=== PATIENT | male | born 1960 | race Hispanic/Latino ===

== ENCOUNTER 2019-12-07 08:21 | Emergency (ER) | payer SELFPAY ==
--- NOTE | 2019-12-07 09:08 | RAD REPORT ---
EXAM DESCRIPTION: CT - Head Brain Wo Cont - 12/07/2019 8:54 am CLINICAL HISTORY: DIZZINESS Headache, drowsiness, dizziness COMPARISON: No comparisons TECHNIQUE: All CT scans are performed using dose optimization technique as appropriate and may inclu de automated exposure control or mA/KV adjustment according to patient size. FINDINGS: No intracranial hemorrhage, hydrocephalus or extra-axial fluid collection.No areas of brai n edema or evidence of midline shift. Mild mucoperiosteal thickening of the right maxillary antrum is seen. The paranasal sinuses and masto ids are otherwise clear. The calvarium is intact. IMPRESSION: No acute intracranial abnormality.
[2019-12-07] MEDS ORDERED: KETOROLAC 30 MG/ML INJ ONE (09:26)
[2019-12-07] MEDS ORDERED: METOCLOPRAMIDE 10 MG/2mL INJ ONE (09:26)
[2019-12-07] MEDS ORDERED: NA CHLORIDE 0.9% 50 ML IV ONE (09:26)
[2019-12-07] MEDS ORDERED: NA CHLORIDE 0.9% 1,000 ML ONE (09:26)
[2019-12-07] MEDS ORDERED: DIPHENHYDRAMINE 50 MG/ML VIAL ONE (09:26)
[2019-12-07] MEDS ORDERED: MECLIZINE HCL 12.5 MG TAB ONE (09:26)
[2019-12-07 09:51] LABS: Absolute Lymphocytes (CBC) 1.3 K/uL (0.7-4.9); Basophils % 0.9 % (0-1.3); Hematocrit 48.9 % (39.6-49.0); Lymphocytes % 20.6 % (15.3-44.8); MPV 8.5 fL (7.6-11.3); RBC Red Blood Cell Count 5.67 M/uL (4.33-5.43)
[2019-12-07 09:53] LABS: Protime INR 0.96
[2019-12-07 10:05] LABS: Albumin 3.5 g/dL (3.4-5.0); Bilirubin Total 0.3 mg/dL (0.2-1.0); Protein, Total 7.2 g/dL (6.4-8.2)
[2019-12-07 10:06] LABS: Potassium 4.3 mmol/L (3.5-5.1)
--- NOTE | 2019-12-07 10:36 | EDPHYS ---
Physician Documentation [facility] Name: Armaan Ibrahim Age: 59 yrs Sex: Male : 1960 Arrival Date: 12/07/2019 Time: 08:22 Bed 5 Private MD: ED Physician Lino Muñoz HPI: 12/06 10:33 This 59 yrs old Male presents to ER via EMS with complaints of Headache > ma2 24hrs Old. 10:33 The patient complains of pain to the right [employer]. Onset: The symptoms/episode ma2 began/occurred gradually, 1 day(s) ago. Associated signs and symptoms: Pertinent negatives: dizziness, malaise, neck stiffness, Photophobia. Severity of symptoms: At its worst the pain was mild, in the emergency department the pain is unchanged. Headache History: Denies prior headaches. The patient has not experienced similar symptoms in the past. Historical: - Allergies: 08: No Known Allergies; ph - Home Meds: : None [Active]; ph - PMHx: : None; ph - Immunization history:: Adult Immunizations unknown. - Social history:: Patient/guardian denies using The patient lives with family, Smoking status: Patient/guardian denies using alcohol, street drugs, tobacco products. - Family history:: not pertinent. ROS: 10:33 Constitutional: Negative for fever, chills, and weight loss. ma2 10:33 All other systems are negative. Exam: 10:33 Constitutional: This is a well developed, well nourished patient who is awake, alert, ma2 and in no acute distress. Head/Face: Normocephalic, atraumatic. Eyes: Pupils equal round and reactive to light, extra-ocular motions intact. Lids and lashes normal. Conjunctiva and sclera are non-icteric and not injected. Cornea within normal limits. Periorbital areas with no swelling, redness, or edema. ENT: Nares patent. No nasal discharge, no septal abnormalities noted. Tympanic membranes are normal and external auditory canals are clear. Oropharynx with no redness, swelling, or masses, exudates, or evidence of obstruction, uvula midline. Mucous membranes moist. Neck: Trachea midline, no thyromegaly or masses palpated, and no cervical lymphadenopathy. Supple, full range of motion without nuchal rigidity, or vertebral point tenderness. No Meningismus. Chest/axilla: Normal chest wall appearance and motion. Nontender with no deformity. No lesions are appreciated. Cardiovascular: Regular rate and rhythm with a normal S1 and S2. No gallops, murmurs, or rubs. Normal PMI, no JVD. No pulse deficits. Respiratory: Lungs have equal breath sounds bilaterally, clear to auscultation and percussion. No rales, rhonchi or wheezes noted. No increased work of breathing, no retractions or nasal flaring. Abdomen/GI: Soft, non-tender, with normal bowel sounds. No distension or tympany. No guarding or rebound. No evidence of tenderness throughout. MS/ Extremity: Pulses equal, no cyanosis. Neurovascular intact. Full, normal range of motion. Neuro: Awake and alert, GCS 15, oriented to person, place, time, and situation. Cranial nerves II-XII grossly intact. Motor strength 5/5 in all extremities. Sensory grossly intact. Cerebellar exam normal. Normal gait. Vital Signs: 08:25 BP 193 / 95; Pulse 65; Resp 18; Temp 97.0; Pulse Ox 99% on R/A; ph 09:52 BP 165 / 92; Pulse 72; Resp 18; Pulse Ox 100% on R/A; ph 10:31 BP 142 / 96; Pulse 62; Resp 18; Pulse Ox 100% on R/A; ph [place] Coma Score: 10:33 Eye Response: spontaneous(4). Verbal Response: oriented(5). Motor Response: obeys ma2 commands(6). Total: 15. MDM: 08:23 Patient medically screened. ma2 10:33 Differential diagnosis: migraine, otitis, uremia, vasomotor headache. Data reviewed: ma2 vital signs, nurses notes. Data reviewed: [facility] records, old medical records, lab test result(s), radiologic studies. Counseling: I had a detailed discussion with the patient and/or guardian regarding: the historical points, exam findings, and any diagnostic results supporting the discharge/admit diagnosis, the presence of at least one elevated blood pressure reading (>120/80) during this emergency department visit, the need for outpatient follow up. Response to treatment: the patient's symptoms have markedly improved after treatment, the patient's symptoms have resolved after treatment. 12/06 08:27 Order name: CBC with Diff; Complete Time: 10:36 ma2 12/06 08:27 Order name: CMP; Complete Time: 10:08 ma2 12/06 08:27 Order name: CT Head Brain wo Cont; Complete Time: 10:08 ma2 12/06 08:27 Order name: PT-INR; Complete Time: 10:08 ma2 12/06 08:27 Order name: Ptt, Activated; Complete Time: 10:08 ma2 12/06 11:01 Order name: Urine Dipstick--Ancillary (enter results) bd 12/06 08:27 Order name: Urine Dipstick-Ancillary (obtain specimen); Complete Time: 11:00 ma2 12/06 09:26 Order name: Labs - recollect needed; Complete Time: 09:52 bd Administered Medications: 09:25 Drug: TORadol 30 mg Route: IVP; Site: right antecubital; ph 10:30 Follow up: Response: No adverse reaction ph 09:25 Drug: Benadryl 50 mg Route: IVP; Site: right antecubital; ph 10:29 Follow up: Response: No adverse reaction ph 09:25 Drug: Meclizine 25 mg Route: PO; ph 10:29 Follow up: Response: No adverse reaction ph 09:26 Drug: NS 0.9% 1000 ml Route: IV; Rate: 1 bolus; Site: right antecubital; ph 10:30 Follow up: Response: No adverse reaction; IV Status: Completed infusion ph 09:26 Drug: Reglan 20 mg Route: IVP; Site: right antecubital; ph 10:30 Follow up: Response: No adverse reaction ph Disposition: 12/07/19 10:35 Discharged to Home. Impression: Dizziness and giddiness. - Condition is Stable. - Discharge Instructions: Dizziness, Xisf-ox-Iadu. - Prescriptions for Meclizine 25 mg Oral Tablet - take 1 tablet by ORAL route every 8 hours As needed; 30 tablet. Diclofenac Sodium 75 mg Oral Tablet Sustained Release - take 1 tablet by ORAL route 2 times per day; 30 tablet. - Work release form, Medication Reconciliation Form, Thank You Letter, Antibiotic Education, Prescription Opioid Use form. - Follow up: Private Physician; When: Tomorrow; Reason: Continuance of care. Signatures: Dispatcher [employer] EDMS Corrina Chavarria Patricia, RN RN ph Lino Muñoz MD MD ma2 Corrections: (The following items were deleted from the chart) 08:53 08:31 Social history: Smoking status: ph ph 11:10 10:35 12/07/2019 10:35 Discharged to Home. Impression: Dizziness and giddiness. ph Condition is Stable. Prescriptions for Meclizine 25 mg Oral Tablet - take 1 tablet by ORAL route every 8 hours As needed; 30 tablet, Diclofenac Sodium 75 mg Oral Tablet Sustained Release - take 1 tablet by ORAL route 2 times per day; 30 tablet. and Forms are Medication Reconciliation Form, Thank You Letter, Antibiotic Education, Prescription Opioid Use. Follow up: Private Physician; When: Tomorrow; Reason: Continuance of care. ma2
--- NOTE | 2019-12-07 10:36 | ER ---
Nurse's Notes [facility] Name: Armaan Ibrahim Age: 59 yrs Sex: Male : 1960 Arrival Date: 12/07/2019 Time: 08:22 Bed 5 Private MD: Diagnosis: Dizziness and giddiness Presentation: 12/06 08:25 Chief complaint: EMS states: R sided headache since yesterday, describes as "buzzing", ph pt hypertensive at 190/100, HR 72, pt also reports dizziness and blurred vision. Denies any significant medical hx, denies recent illness. Coronavirus screen: Client denies travel out of the [place] in the last 14 days. At this time, the client does not indicate any symptoms associated with coronavirus-19. Ebola Screen: No symptoms or risks identified at this time. Initial Sepsis Screen: Does the patient meet any 2 criteria? No. Patient's initial sepsis screen is negative. Does the patient have a suspected source of infection? No. Patient's initial sepsis screen is negative. Risk Assessment: Do you want to hurt yourself or someone else? Patient reports no desire to harm self or others. Onset of symptoms was December 07, 2019. 08:25 Method Of Arrival: EMS: [facility] 08:25 Acuity: ANTOINE 2 ph Historical: - Allergies: 08:28 No Known Allergies; ph - Home Meds: 08:28 None [Active]; ph - PMHx: 08:28 None; ph - Immunization history:: Adult Immunizations unknown. - Social history:: Patient/guardian denies using The patient lives with family, Smoking status: Patient/guardian denies using alcohol, street drugs, tobacco products. - Family history:: not pertinent. Screenin:28 Abuse screen: Denies threats or abuse. Denies injuries from another. Nutritional ph screening: No deficits noted. Tuberculosis screening: No symptoms or risk factors identified. Fall Risk None identified. Assessment: 08:31 General: Appears in no apparent distress. comfortable, well groomed, Behavior is calm, ph cooperative, appropriate for age, Denies fever, feeling ill. Pain: Complains of pain in right faith. Neuro: Level of Consciousness is awake, alert, obeys commands, Oriented to person, place, time, situation, Reports blurred vision dizziness, headache Denies weakness. Cardiovascular: Capillary refill < 3 seconds in bilateral fingers Patient's skin is warm and dry. Respiratory: Airway is patent Respiratory effort is even, unlabored, Respiratory pattern is regular, symmetrical. GI: No signs and/or symptoms were reported involving the gastrointestinal system. Derm: Skin is intact, is healthy with good turgor, Skin is pink, warm \\T\\ dry. Musculoskeletal: Circulation, motion, and sensation intact. Range of motion: intact in all extremities. 09:28 Reassessment: No changes from previously documented assessment. Patient and/or family ph updated on plan of care and expected duration. Pain level reassessed. Patient is alert, oriented x 3, equal unlabored respirations, skin warm/dry/pink. 10:51 Reassessment: No changes from previously documented assessment. Patient and/or family zb updated on plan of care and expected duration. Pain level reassessed. Patient is alert, oriented x 3, equal unlabored respirations, skin warm/dry/pink. Patient states feeling better. Vital Signs: 08:25 BP 193 / 95; Pulse 65; Resp 18; Temp 97.0; Pulse Ox 99% on R/A; ph 09:52 BP 165 / 92; Pulse 72; Resp 18; Pulse Ox 100% on R/A; ph 10:31 BP 142 / 96; Pulse 62; Resp 18; Pulse Ox 100% on R/A; ph [place] Coma Score: 10:33 Eye Response: spontaneous(4). Verbal Response: oriented(5). Motor Response: obeys ma2 commands(6). Total: 15. ED Course: 08:22 Patient arrived in ED. ss 08:23 Kelsie Harkins, FRANCINE is Primary Nurse. ph 08:23 Lino Muñoz MD is Attending Physician. ma2 08:28 Triage completed. ph 08:28 Arm band placed on Patient placed in an exam room, on a stretcher, on monitoring tech, ph on pulse oximetry. 08:28 Patient has correct armband on for positive identification. Placed in gown. Bed in low ph position. Call light in reach. Side rails up X 1. air sampling and monitoring on. Pulse ox on. NIBP on. Door closed. Noise minimized. Warm blanket given. 08:51 Inserted saline lock: 20 gauge in right antecubital area, using aseptic technique. ph 08:[address] via wheelchair. ph 08:54 CT Head Brain wo Cont In Process Unspecified. EDMS 10:31 No provider procedures requiring assistance completed. ph 11:05 IV discontinued, intact, bleeding controlled, No redness/swelling at site. Pressure zb dressing applied. Administered Medications: 09:25 Drug: TORadol 30 mg Route: IVP; Site: right antecubital; ph 10:30 Follow up: Response: No adverse reaction ph 09:25 Drug: Benadryl 50 mg Route: IVP; Site: right antecubital; ph 10:29 Follow up: Response: No adverse reaction ph 09:25 Drug: Meclizine 25 mg Route: PO; ph 10:29 Follow up: Response: No adverse reaction ph 09:26 Drug: NS 0.9% 1000 ml Route: IV; Rate: 1 bolus; Site: right antecubital; ph 10:30 Follow up: Response: No adverse reaction; IV Status: Completed infusion ph 09:26 Drug: Reglan 20 mg Route: IVP; Site: right antecubital; ph 10:30 Follow up: Response: No adverse reaction ph Outcome: 10:35 Discharge ordered by . cathi 11:10 Patient left the ED. ph 11:13 Discharged to home ambulatory. zb 11:13 Condition: good 11:13 Discharge instructions given to patient, Instructed on discharge instructions, follow up and referral plans. medication usage, Demonstrated understanding of instructions, follow-up care, medications, Prescriptions given X 2. Signatures: Dispatcher [employer] EDNV Claudia Figueroa RN RN Kelsie Harkins RN RN Lino Muñoz MD MD ma2 Brown, Zipporah, RN RN zb Corrections: (The following items were deleted from the chart) 08:53 08:31 Social history: Smoking status: ph ph
[2019-12-07 11:22] VITALS: TEMP 97
[2019-12-07 11:24] VITALS: O2SAT 100
[2019-12-07 11:25] VITALS: BP 142/96
[2019-12-07 11:27] LABS: Urine Blood NEGATIVE (NEG); Urine Glucose NEGATIVE (NEG); Urine Protein NEGATIVE (NEG)
== END 2019-12-07 11:10 | disposition home or self-care (01) ==
LOC: ER 08:21
DX: R42 Dizziness and giddiness (principal)
CPT/HCPCS: 36415; 70450; 80053; 81003; 85025; 85610; 85730; 96361; 96374; 96375; 99285; J1200; J2765; J7030